=== PATIENT | female | born 1990 | race Caucasian/White ===

== ENCOUNTER 2016-11-16 11:09 | Emergency (ER) | payer MEDICAID | END 2016-11-16 12:36 | disposition home or self-care (01) | LOC: D.ER 11:09 | DX: T78.49XA Other allergy, initial encounter (principal); X58.XXXA Exposure to other specified factors, initial encounter; Z72.0 Tobacco use ==

== ENCOUNTER 2018-10-17 13:32 | Emergency (ER) | payer MEDICAID ==
[2018-10-17 13:44] VITALS: BMI 25.8
[2018-10-17] MEDS ORDERED: HYDROCODON-ACE1 EA10 PO (15:20)
[2018-10-17 15:40] VITALS: BP 128/74
== END 2018-10-17 15:41 | disposition home or self-care (01) ==
LOC: D.ER 13:32
DX: S42.402A Unspecified fracture of lower end of left humerus, initial encounter for closed fracture (principal); X58.XXXA Exposure to other specified factors, initial encounter; Y93.89 Activity, other specified; Y92.89 Other specified places as the place of occurrence of the external cause

== ENCOUNTER 2018-11-01 19:00 | Emergency (ER) | payer MEDICAID ==
[2018-10-17 13:44] VITALS: Ht 162.6 cm; Wt 68.0 kg
[~2018-11-01] VITALS: Ht 162.6 cm; Wt 68.0 kg
[~2018-11-01 19:00] MED LIST: HYDROCODON-ACE1 EA10 PO
[2018-11-01] MEDS ORDERED: OMEPRAZOLE20 M1 PO (20:12)
[2018-11-01] MEDS ORDERED: VOLTAREN75 MG PO (20:12)
[2018-11-01] MEDS ORDERED: ULTRAM50 MG PO (20:12)
[2018-11-01 20:23] VITALS: BP 123/74
== END 2018-11-01 20:23 | disposition home or self-care (01) ==
LOC: D.ER 19:00
DX: M25.522 Pain in left elbow (principal); F17.210 Nicotine dependence, cigarettes, uncomplicated